=== PATIENT | female | born 1990 | race Caucasian/White ===

== ENCOUNTER 2018-08-05 11:19 | Emergency (ER) | payer MEDICAID, OTHER ==
[2018-08-05 11:30] VITALS: BP 104/65
--- NOTE | 2018-08-05 12:15 | Emergency Department Report ---
ED HPI - General Chief complaint: Vaginal Bleeding Stated complaint: 7WKS/PAIN Time Seen by Provider: 08/05/18 12:01 Source: patient Mode of arrival: Ambulatory Limitations: Language Barrier - History of Present Illness Initial comments: This is a 27-year-old female nontoxic, well nourished in appearance, no acute signs of distress presents to the ED with c/o of vaginal bleeding x1 day. Patient stated yesterday she noticed some spotting this morning x3 occasions and primarily only when she wipes after the restroom. Patient currently stated that her vaginal bleeding has subsided since the morning. Patient denies any abdominal or pelvic pain. Patient denies any vaginal discharge or foul odor. Patient denies any nausea, vomiting, chest pain, shortness of breathe, fever, chills, headache, stiff neck, numbness, tingling. Patient denies any urinary symptoms. Patient denies any allergies or PMH. Patient is Kyrgyz speaking so Janae fire patroller present during exam and interview for translation purposes. MD Complaint: vaginal bleeding -: days(s) (1) Severity scale (0 -10): 0 Improves with: none Worsens with: none Associated symptoms: vaginal bleeding. denies: nausea/vomiting, vaginal discharge, abdominal pain, dysuria, headache, vision changes, malaise, dysparuenia, rash, seizure, shortness of breath, syncope, weakness Vaginal bleeding: light :: Yes Number of weeks : 7 Pre- care: none - Related Data Previous Rx's Medication Instructions Recorded Last Taken Type Ibuprofen [Motrin 600 MG tab] 600 mg PO Q6HR #30 tablet 05/19/16 Unknown Rx 21/Iron Fu/Folic Acid 1 each PO DAILY #30 tablet 08/05/18 Unknown Rx [ Complete Caplet] Allergies Allergy/AdvReac Type Severity Reaction Status Date / Time No Known Allergies Allergy Unverified 05/18/16 05:23 ED Review of Systems ROS: Stated complaint: 7WKS/PAIN Other details as noted in HPI Constitutional: denies: chills, fever Eyes: denies: eye pain, eye discharge, vision change ENT: denies: ear pain, throat pain Respiratory: denies: cough, shortness of breath, wheezing Cardiovascular: denies: chest pain, palpitations Endocrine: no symptoms reported Gastrointestinal: denies: abdominal pain, nausea, diarrhea Genitourinary: abnormal menses. denies: urgency, dysuria, discharge Musculoskeletal: denies: back pain, joint swelling, arthralgia Skin: denies: rash, lesions Neurological: denies: headache, weakness, paresthesias Psychiatric: denies: anxiety, depression Hematological/Lymphatic: denies: easy bleeding, easy bruising ED Past Medical Hx - Past Medical History Previous Medical History?: No Hx Hypertension: No Hx Congestive Heart Failure: No Hx Diabetes: No Hx Deep Vein Thrombosis: No Hx Renal Disease: No Hx Sickle Cell Disease: No Hx Seizures: No Hx Asthma: No Hx COPD: No Hx HIV: No - Surgical History Past Surgical History?: No - Social History Smoking Status: Never Smoker Substance Use Type: None - Medications Home Medications: Home Medications Medication Instructions Recorded Confirmed Last Taken Type Ibuprofen [Motrin 600 MG tab] 600 mg PO Q6HR #30 tablet 05/19/16 Unknown Rx 21/Iron Fu/Folic Acid 1 each PO DAILY #30 tablet 08/05/18 Unknown Rx [ Complete Caplet] ED Physical Exam - General Limitations: Language Barrier General appearance: alert, in no apparent distress - Head Head exam: Present: atraumatic, normocephalic - Neck Neck exam: Present: normal inspection, full ROM - Extremities Exam Extremities exam: Present: normal inspection, full ROM - Back Exam Back exam: Present: normal inspection, full ROM. Absent: tenderness, CVA tenderness (R), CVA tenderness (L), muscle spasm, paraspinal tenderness, vertebral tenderness, rash noted - Neurological Exam Neurological exam: Present: alert, oriented X3 - Psychiatric Psychiatric exam: Present: normal affect, normal mood - Skin Skin exam: Present: warm, dry, intact, normal color. Absent: rash ED Course Vital Signs 08/05/18 11:27 Temperature 98.6 F Pulse Rate 71 Respiratory 16 Rate Blood Pressure 104/65 O2 Sat by Pulse 100 Oximetry - Reevaluation(s) Reevaluation #1: 08/05/18 12:50 Patient is speaking in full sentences with no signs of distress noted. - Consultations Consultation #1: 08/05/18 15:18 Patient has been consulted with Dr. Martinez about patient history, physical exam, and labs/US report and stated patient can be discharged with outpatient follow-up. ED Medical Decision Making - Lab Data Result diagrams: 08/05/18 12:22 - Medical Decision Making This is a 27-year-old female presents with threatened miscarriage. Patient is stable and was examined by me. Normal abdominal exam. US OB obtained and dictated by the radiologist. Ua obtained. Consilted with Dr. Martinez. Quantative serum test obtained. Patient notified of the US report with no questions noted by the patient. Patient was instructed f/u with TRANSITION MANAGER tomorrow to follow up with a TRANSITION MANAGER. RH factor positive. Labs within normal limits. Patient was given strict precautions and education on ectopic . At time of discharge, the patient does not seem toxic or ill in appearance. No acute signs of distress noted. Patient agrees to discharge treatment plan of care. No further questions noted by the patient. Janae presents during interview, exam, and discharge instructions for translation purposes. Critical care attestation.: If time is entered above; I have spent that time in minutes in the direct care of this critically ill patient, excluding procedure time. ED Disposition Clinical Impression: Threatened miscarriage Disposition: DC-01 TO HOME OR SELFCARE Is pt being admited?: No Does the pt Need Aspirin: No Condition: Stable Instructions: Ectopic (ED), Threatened Miscarriage (ED) Additional Instructions: Follow-up with a OBGYN doctor tomorrow or if symptoms worsen and continue return to emergency room as soon as possible. Prescriptions: 21/Iron Fu/Folic Acid [ Complete Caplet] 1 each PO DAILY #30 tablet Referrals: [facility] [Provider Group] - 3-5 Days MAGGIE SALAS MD [Primary Care Provider] - 3-5 Days [facility], [Referring] - 3-5 Days TOREY MARTINEZ MD [Staff Physician] - 08/06/18 Forms: Work/School Release Form(ED) Print Language: MALAY
[2018-08-05 12:38] LABS: Basophils % (Auto) 0.8 % (0.0-1.8); Eosinophils # (Auto) 0.1 K/mm3 (0.0-0.4); Eosinophils % (Auto) 2.3 % (0.0-4.3); Hematocrit 36.4 % (30.3-42.9); Lymphocytes # (Auto) 1.9 K/mm3 (1.2-5.4); Lymphocytes % (Auto) 35.6 % (13.4-35.0); Mean Corpuscular HGB Conc 33 % (30-34); Mean Corpuscular Volume 87 fl (79-97); Monocytes # (Auto) 0.4 K/mm3 (0.0-0.8); Monocytes % (Auto) 8.5 % (0.0-7.3); Platelet Count 180 K/mm3 (140-440); Red Blood Count 4.18 M/mm3 (3.65-5.03)
[2018-08-05 13:46] LABS: Bacteria,Urine 1+ /HPF (Negative); Bilirubin,Urine NEG (Negative); Blood,Urine NEG (Negative); Color,Urine Yellow (Yellow); Mucus,Urine FEW /HPF; Protein,Urine <15 mg/dL mg/dL (Negative); Urobilinogen,Urine < 2.0 mg/dL (<2.0); WBC,Urine < 1.0 /HPF (0.0-6.0)
--- NOTE | 2018-08-05 14:09 | Ultrasound Report ---
ULTRASOUND OB LESS THAN 14 WEEKS FETUS ULTRASOUND OB TRANSVAGINAL History: Vaginal bleeding. Technique: Transabdominal and transvaginal ultrasound imaging. Findings: The uterus is anteverted. The uterus measures 10.2 x 7.2 x 9.7 cm. No obvious uterine fibroid disease. Cervix is within normal limits. An empty gestational sac is suggested within the endometrial canal. No pole, heart rate or yolk sac is confidently identified. Gestational sac diameter measures 15 mm which correlates with a six-week two-day . A moderate subchorionic hemorrhage is identified surrounding the gestational sac. The right ovary is unremarkable measuring 2.9 x 1.4 x 1.7 cm. The left ovary is unremarkable measuring 3.3 x 1.7 x 2.4 cm. No pelvic fluid is appreciated in IMPRESSION: An intrauterine gestational sac is identified but no pole, yolk sac or heart rate could be demonstrated on ultrasound. This could represent a blighted ovum. A very early normal could be considered. Close interval followup is recommended. Moderate subchorionic hemorrhage. Please note that an ectopic is not entirely excluded.
--- NOTE | 2018-08-05 15:18 | Event Note ---
Date: 08/05/18 Images rev'd, spoke with Johnson agree with D/c home if stable and to call office today or tomorrow to schedule appointment
== END 2018-08-05 15:32 | disposition home or self-care (01) ==
LOC: ED 11:19
DX: O20.0 Threatened abortion (principal); Z3A.01 Less than 8 weeks gestation of pregnancy
CPT/HCPCS: 36415; 76801; 76817; 81001; 84702; 85025; 86850; 86900; 86901; 99284